=== PATIENT | female | born 1965 | race Caucasian/White ===

== ENCOUNTER 2016-09-17 13:21 | Outpatient (CLI) | payer MEDICAID | END 2016-09-17 13:22 | disposition home or self-care (01) | DX: F43.12 Post-traumatic stress disorder, chronic (principal); F33.1 Major depressive disorder, recurrent, moderate; G47.00 Insomnia, unspecified; F10.20 Alcohol dependence, uncomplicated ==

== ENCOUNTER 2016-09-18 12:40 | Outpatient (CLI) | payer MEDICAID | END 2016-09-18 12:41 | disposition home or self-care (01) | DX: M25.462 Effusion, left knee (principal); Z96.653 Presence of artificial knee joint, bilateral ==

== ENCOUNTER 2016-10-06 08:13 | Outpatient (CLI) | payer MEDICAID | END 2016-10-06 08:14 | disposition home or self-care (01) | DX: M25.462 Effusion, left knee (principal); M25.461 Effusion, right knee; Z96.653 Presence of artificial knee joint, bilateral ==

== ENCOUNTER 2016-10-07 09:00 | Outpatient (CLI) | payer MEDICAID | END 2016-10-07 09:01 | DX: Z01.818 Encounter for other preprocedural examination (principal) ==

== ENCOUNTER 2016-10-07 09:14 | Outpatient (CLI) | payer MEDICAID | END 2016-10-07 09:15 | disposition home or self-care (01) | DX: Z01.818 Encounter for other preprocedural examination (principal) ==

== ENCOUNTER 2016-10-07 11:49 | Outpatient (CLI) | payer MEDICAID | END 2016-10-07 11:50 | disposition home or self-care (01) | DX: Z01.818 Encounter for other preprocedural examination (principal) ==

== ENCOUNTER 2017-01-01 10:01 | Outpatient (CLI) | payer MEDICAID ==
[2017-01-01 10:51] LABS: BASOPHILS # (AUTO) 0.1 10^3/uL (0.0-0.1); BASOPHILS % (AUTO) 0.8 %; EOSINOPHILS # (AUTO) 0.2 10^3/uL (0.0-0.7); EOSINOPHILS % (AUTO) 2.2 %; HCT - HEMATOCRIT 40.5 % (37.0-47.0); HGB - HEMOGLOBIN 13.6 g/dL (12.0-16.0); LYMPHOCYTES # (AUTO) 2.8 10^3/uL (1.5-3.5); LYMPHOCYTES % (AUTO) 29.4 %; MEAN CORPUSCULAR HEMOGLOBIN 30.7 pg (27.0-31.0); MEAN CORPUSCULAR HGB CONC 33.6 g/dL (32.0-36.0); MEAN CORPUSCULAR VOLUME 91.6 fL (81.0-99.0); MEAN PLATELET VOLUME 6.7 fL (7.9-10.8); MONOCYTES # (AUTO) 0.5 10^3/uL (0.0-1.0); MONOCYTES % (AUTO) 5.1 %; NEUTROPHILS # (AUTO) 5.9 10^3/uL (1.5-6.6); NEUTROPHILS % (AUTO) 62.5 %; RED BLOOD COUNT 4.42 10^6/uL (4.20-5.40); RED CELL DISTRIBUTION WIDTH 13.9 % (12.0-15.0); UNCORRECTED WHITE BLOOD COUNT 9.5 x10^3/uL; WHITE BLOOD COUNT 9.5 x10^3/uL (4.8-10.8)
== END 2017-01-01 10:02 | disposition home or self-care (01) ==
LOC: LAB 10:01
PROVIDERS: ATTEND Orthopaedic Surgery
DX: M25.562 Pain in left knee (principal); Z96.652 Presence of left artificial knee joint
CPT/HCPCS: 36415; 85025; 85651; 86140

== ENCOUNTER 2017-03-25 18:33 | Emergency (ER) | payer MEDICAID ==
[2017-03-25] MEDS ORDERED: LIDOCAINE PATCH 5% TOP STA (20:20)
[2017-03-25] MEDS ORDERED: DEXAMETHASONE 10 MG/ML VIAL PO STA (20:20)
[2017-03-25] MEDS ORDERED: CYCLOBENZAPRINE 10 MG TABLET PO STA (20:20)
[2017-03-25] MEDS ORDERED: CYCLOBENZAPRINE 10 MG TABLET PO ONE (20:38)
[2017-03-25] MEDS ORDERED: CHERRY SYRUP 10 ML UDC PO ONE (20:39)
[2017-03-25] MEDS ORDERED: LIDOCAINE PATCH 5% TOP ONE (20:39)
[2017-03-25] MEDS ORDERED: DEXAMETHASONE 10 MG/ML VIAL ONE (20:39)
--- NOTE | 2017-03-25 20:42 | ED Physician Documentation ---
History of Present Illness - Stated complaint Stated Complaint: SHOULDER PX - Chief complaint Chief Complaint: Ext Problem - Additonal information Additional information: hx from pt 51 female prior surgery both shoulders with complications and resultant limited ROM about a week ago she was reaching and heard / felt a crack in her shoulder and has had severe pain to top/ant shoulder since radiating to the side of her neck and occ shooting down her arm to the 3rd and 4th fingers was a ortho office yesterday but for her knee and did not have the shoulder addressed Review of Systems Musculoskeletal: reports: Joint pain PD PAST MEDICAL HISTORY - Past Medical History Cardiovascular: None Respiratory: None Neuro: None Endocrine/Autoimmune: None GI: None 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 HEENT: Other Psych: Depression, Anxiety, Bipolar disorder Musculoskeletal: Osteoarthritis, Other Derm: None - Past Surgical History Past Surgical History: Yes General: Cholecystectomy Ortho: Knee replacement, Rotator cuff repair HEENT: Tonsil/Adenoidectomy, Other - Present Medications Home Medications: Ambulatory Orders Medication Instructions Recorded Confirmed [place] Carbonate 900 mg PO DAILY 08/30/13 03/25/17 Cyclobenzaprine [Flexeril] 10 mg PO TID PRN #20 tablet 03/25/17 Lidocaine Patch 5% [Lidoderm Patch] 1 each TOP DAILY PRN #10 patch 03/25/17 predniSONE [Deltasone] 20 mg PO DAILY 5 Days 03/25/17 - Allergies Allergies/Adverse Reactions: Allergies Allergy/AdvReac Type Severity Reaction Status Date / Time codeine Allergy Mild Hives Verified 03/25/17 19:37 - Social History Does the pt smoke?: Yes Smoking Status: Current every day smoker Does the pt drink ETOH?: No Does the pt have substance abuse?: No - Immunizations Immunizations are current?: Yes - POLST Patient has POLST: No PD ED PE NORMAL - Vitals Vital signs reviewed: Yes - Cardiac Cardiac: RRR - Respiratory Respiratory: No respiratory distress, Clear bilaterally - Extremities Extremities: Other (L shoulder no sig deformity, surgical scar, limited ROM niru ext and ABD 2/2, no eruythema or warmth, + radial ulnar pulses, sensation intact , bicep tricep OK dog and cat food cook finger ABD wrist ext OK and thumbs up all intact) - Neuro Neuro: No motor deficit, No sensory deficit Results - Vitals Vitals: Vital Signs - 24 hr 03/25/17 03/25/17 18:41 21:30 Temperature 36.7 C 36.5 C Heart Rate 63 64 Respiratory 22 18 Rate Blood Pressure 113/73 119/87 H O2 Saturation 100 100 Oxygen O2 Source [With Activity] Room air O2 Source Room air - Rads (name of study) shoulder Radiology: See rad report (degen changes but no acute) Departure - Departure Disposition: 01 Home, Self Care Clinical Impression: Radiculopathy of arm Shoulder pain, left Qualifiers: Chronicity: unspecified Qualified Code(s): M25.512 - Pain in left shoulder Condition: Good Follow-Up: Kalyn Talbert ARNP [Primary Care Provider] - Ruben Orona DO [Physician No Access] - Prescriptions: predniSONE [Deltasone] 20 mg PO DAILY 5 Days Cyclobenzaprine [Flexeril] 10 mg PO TID PRN #20 tablet PRN Reason: Spasms Lidocaine Patch 5% [Lidoderm Patch] 1 each TOP DAILY PRN #10 patch PRN Reason: Pain Comments: The xray shows degenerative changes but no acute fracture or dislocation. I recommend wearing the sling as needed for comfort and support - but it is important for you to do some range of motion with shoulder several times a day to prevent a "frozen shoulder" Recommend lidocaine patch (up to 12 hr a day) and flexeril (muscle relaxant) for the pain and the steroids to decrease the nerve pain going down your arm. Do not take aleve or ibuprofen while taking the steroid Follow up with your home health billing specialist if not better And please follow up with your PMD to get your blood pressure rechecked - it was high today
--- NOTE | 2017-03-25 21:25 | XRAY Preliminary Report ---
Exam: XR Shoulder 3 View LT IMPRESSION: 1. No acute osseous abnormalities. Normal alignment. 2. Degenerative changes of the left shoulder. [facility] SITE ID: [id number]
--- NOTE | 2017-03-25 21:27 | XRAY Report ---
EXAM: LEFT SHOULDER RADIOGRAPHY EXAM DATE: 03/25/2017 08:43 PM. CLINICAL HISTORY: Pain and cracking sensation, prior surgery. COMPARISON: 06/25/2015. 10/17/2014. TECHNIQUE: 3 views. FINDINGS: Bones: No acute fracture or bony lesion. Degenerative osteophyte formation. Type I acromion. Subchond ral cystic change involving the left humeral head. Joints: Narrowing of the left acromioclavicular an left glenohumeral joints. No dislocation. Soft tissues: The visualized hemithorax is unremarkable. No soft tissue swelling. IMPRESSION: 1. No acute osseous abnormalities. Normal alignment. 2. Degenerative changes of the left shoulder. [facility] Referring Provider Line: [phone] SITE ID: [id number]
[2017-03-25 21:31] VITALS: BP 119/87
== END 2017-03-25 22:01 | disposition home or self-care (01) ==
LOC: ED 18:33
DX: M54.10 Radiculopathy, site unspecified (principal); M25.512 Pain in left shoulder; F17.200 Nicotine dependence, unspecified, uncomplicated; Z96.659 Presence of unspecified artificial knee joint
CPT/HCPCS: 73030; 99283; A9270

== ENCOUNTER 2017-05-12 10:21 | Emergency (ER) | payer MEDICAID ==
--- NOTE | 2017-05-12 11:47 | ED Physician Documentation ---
PD HPI UPPER EXT INJURY - Stated complaint Stated Complaint: SHLDR PAIN - Chief complaint Chief Complaint: Ext Problem - History obtained from History obtained from: Patient - History of Present Illness Location: Left, Shoulder Type of injury: No: Fall, Twist, Blunt / blow Timing - details: Abrupt onset, Still present Worsened by: Moving Associated symptoms: No: Weakness, Numbness, Swelling Similar symptoms before: Diagnosis Recently seen: Not recently seen Review of Systems Skin: denies: Rash Neurologic: denies: Focal weakness, Numbness, Near syncope Endocrine: denies: Weight loss PD PAST MEDICAL HISTORY - Past Medical History Past Medical History: Yes Cardiovascular: None Respiratory: None Neuro: None Endocrine/Autoimmune: None GI: None 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 HEENT: Other Psych: Depression, Anxiety, Bipolar disorder Musculoskeletal: Osteoarthritis, Other Derm: None - Past Surgical History Past Surgical History: Yes General: Cholecystectomy Ortho: Knee replacement, Rotator cuff repair HEENT: Tonsil/Adenoidectomy, Other - Present Medications Home Medications: Ambulatory Orders Medication Instructions Recorded Confirmed [place] Carbonate 900 mg PO DAILY 08/30/13 05/12/17 Cyclobenzaprine [Flexeril] 10 mg PO TID PRN #20 tablet 03/25/17 05/12/17 Dexamethasone [Decadron] 4 mg PO DAILY #5 tablet 05/12/17 Gabapentin 400 mg PO DAILY 05/12/17 05/12/17 Lidocaine Patch 5% [Lidoderm Patch] 1 each TOP DAILY #10 patch 05/12/17 Methocarbamol [Robaxin] 500 mg PO Q6H PRN #25 tablet 05/12/17 Oxycodone HCl/Acetaminophen 1 each PO Q6H PRN #15 tablet 05/12/17 [Percocet 5-325 mg Tablet] - Allergies Allergies/Adverse Reactions: Allergies Allergy/AdvReac Type Severity Reaction Status Date / Time codeine Allergy Mild Hives Verified 05/12/17 10:26 - Social History Does the pt smoke?: Yes Smoking Status: Current every day smoker Does the pt drink ETOH?: No Does the pt have substance abuse?: No - Immunizations Immunizations are current?: Yes - POLST Patient has POLST: No PD ED PE NORMAL - Vitals Vital signs reviewed: Yes - General General: Alert and oriented X 3, Well developed/nourished - HEENT HEENT: Pharynx benign - Neck Neck: Supple, no meningeal sign, No adenopathy, Other (tender left suprascaular area and to the AC joint, without redness, sores, rash. Limited ROm uplifting arm, without pain. No noted clicking nor popping.) - Derm Derm: Normal color, Warm and dry, No rash Results - Vitals Vitals: Vital Signs - 24 hr 05/12/17 05/12/17 10:23 12:42 Temperature 35.9 C L 97.6 C H Heart Rate 73 56 L Respiratory 20 18 Rate Blood Pressure 121/81 H 123/78 O2 Saturation 100 97 Oxygen O2 Source [With Activity] Room air O2 Source Room air - Rads (name of study) left shoulder Radiology: Prelim report reviewed, EMP read contemporaneously (no fracture bnoted.) Departure - Departure Disposition: Home, Self Care Clinical Impression: Shoulder pain, left Qualifiers: Chronicity: chronic Qualified Code(s): M25.512 - Pain in left shoulder Condition: Stable Record reviewed to determine appropriate education?: Yes Follow-Up: Kalyn Talbert ARNP [Primary Care Provider] - Ruben Orona DO [Physician No Access] - Prescriptions: Dexamethasone [Decadron] 4 mg PO DAILY #5 tablet Lidocaine Patch 5% [Lidoderm Patch] 1 each TOP DAILY #10 patch Methocarbamol [Robaxin] 500 mg PO Q6H PRN #25 tablet PRN Reason: Spasms Oxycodone HCl/Acetaminophen [Percocet 5-325 mg Tablet] 1 each PO Q6H PRN #15 tablet PRN Reason: Pain Comments: Light use of left shoulder and try to have some gentle range of motion of it so does not get stiff. Decadron daily for 5 more days as an anti-inflammatory. Use Robaxin as needed for muscle stiffness. Lidocaine patches that you have used before topically to the area. Add Tylenol or Percocet if needed for pain. Follow-up with Dr. Orona. Discharge Date/Time: 05/12/17 12:42
[2017-05-12] MEDS ORDERED: DEXAMETHASONE 10 MG/ML VIAL PO STA (11:55)
[2017-05-12] MEDS ORDERED: diazePAM 5 MG TABLET PO STA (11:55)
[2017-05-12] MEDS ORDERED: oxyCOD/ACETAMIN 5 MG/325 MG TABLET PO STA (11:55)
[2017-05-12] MEDS ORDERED: oxyCOD/ACETAMIN 5 MG/325 MG TABLET PO ONE (12:06)
[2017-05-12] MEDS ORDERED: DEXAMETHASONE 10 MG/ML VIAL ONE (12:07)
[2017-05-12] MEDS ORDERED: diazePAM 5 MG TABLET PO ONE (12:07)
[2017-05-12 12:43] VITALS: BP 123/78
== END 2017-05-12 12:42 | disposition home or self-care (01) ==
LOC: ED 10:21
DX: M25.512 Pain in left shoulder (principal); F17.200 Nicotine dependence, unspecified, uncomplicated; Z96.659 Presence of unspecified artificial knee joint
CPT/HCPCS: 99283

== ENCOUNTER 2017-06-11 08:28 | Outpatient (CLI) | payer MEDICAID ==
--- NOTE | 2017-06-11 11:34 | MRI Report ---
EXAM: LEFT SHOULDER MRI WITHOUT CONTRAST EXAM DATE: 06/11/2017 09:30 AM. CLINICAL HISTORY: Left shoulder pain with reduced range of motion and inability to lift the left uppe r limb for 7 months. Prior rotator cuff surgery. COMPARISON: Prior MRI June 2015. TECHNIQUE: Multiplanar, multisequence T1-weighted and fluid-sensitive sequences of the shoulder witho ut contrast. Other: None. FINDINGS: Acromioclavicular Region: There is an acromioclavicular joint effusion. There is a type II acromion. Fluid fills the subacromial bursa. Glenohumeral Region: There is superior subluxation of the humeral head secondary to the chronic full- thickness rotator cuff tears. There is posterior subluxation of the humeral head as well. The posteri or inferior quadrant of the bony glenoid appears irregular, suggesting prior trauma. There is focal t hinning of the hyaline cartilage of the inferior half of the glenoid. There is a small joint effusion .. Bone Marrow: Suture anchors in the greater tuberosity. Labrum: There is fraying of the posterior inferior quadrant of the labrum, suggesting a tear. The sup erior labrum appears truncated and frayed. The remnants of the proximal long head of biceps tendon ar e medially subluxed. The findings are consistent with a SLAP tear. The remainder of the labrum appear s normal. Musculature/Rotator Cuff: Complete rupture and atrophy of supraspinatus. Near complete rupture of inf raspinatus also with atrophy. Tendinosis and partial-thickness tearing of the deep and superficial fi bers of subscapularis with mild atrophy. The tear involves almost the entire tendon thickness. There is artifact adjacent to the greater tuberosity consistent with prior surgery. Biceps Tendon: Chronic rupture or resection of the long biceps tendon. Other: The subcutaneous tissues are unremarkable. IMPRESSION: 1. Complete rupture of supraspinatus with atrophy. Near complete rupture of infraspinatus and subscap ularis also with partial atrophy. Rotator cuff tears have worsened since the prior study. 2. Superior and posterior subluxation of the humeral head. Worsened since the prior study. 3. Remodeling of the posteroinferior quadrant of the bony glenoid, and overlying labral tear and hyal ine cartilage thinning, suggestive of prior trauma. 4. Complete rupture or resection of the long head of biceps. The tendon was partially torn and medial ly subluxed on the prior study. 5. Probable superior labral tear as well, which may be secondary to the long biceps tendon tear/resec tion. 6. Acromioclavicular joint effusion which was present on the prior study. 7. Evidence of prior rotator cuff repair. [facility]CULOSKELET[facility] Referring Provider Line: [phone] SITE ID: [id number]
== END 2017-06-11 08:29 | disposition home or self-care (01) ==
LOC: DI 08:28
PROVIDERS: ATTEND Orthopaedic Surgery
DX: M75.102 Unspecified rotator cuff tear or rupture of left shoulder, not specified as traumatic (principal); S43.022A Posterior subluxation of left humerus, initial encounter; S46.112A Strain of muscle, fascia and tendon of long head of biceps, left arm, initial encounter; M25.412 Effusion, left shoulder

== ENCOUNTER 2017-07-29 12:52 | Outpatient (CLI) | payer MEDICAID ==
[2017-07-29 13:19] LABS: BASOPHILS # (AUTO) 0.1 10^3/uL (0.0-0.1); BASOPHILS % (AUTO) 0.9 %; EOSINOPHILS # (AUTO) 0.2 10^3/uL (0.0-0.7); EOSINOPHILS % (AUTO) 1.9 %; HGB - HEMOGLOBIN 13.5 g/dL (12.0-16.0); LYMPHOCYTES # (AUTO) 3.3 10^3/uL (1.5-3.5); LYMPHOCYTES % (AUTO) 33.3 %; MEAN CORPUSCULAR HEMOGLOBIN 31.5 pg (27.0-31.0); MEAN CORPUSCULAR HGB CONC 33.5 g/dL (32.0-36.0); MEAN PLATELET VOLUME 6.4 fL (7.9-10.8); MONOCYTES # (AUTO) 0.6 10^3/uL (0.0-1.0); MONOCYTES % (AUTO) 5.6 %; NEUTROPHILS # (AUTO) 5.8 10^3/uL (1.5-6.6); NEUTROPHILS % (AUTO) 58.3 %; PLT - PLATELET COUNT 430 10^3/uL (130-450); RED BLOOD COUNT 4.29 10^6/uL (4.20-5.40); RED CELL DISTRIBUTION WIDTH 13.4 % (12.0-15.0); WHITE BLOOD COUNT 9.9 x10^3/uL (4.8-10.8)
[2017-07-29 13:20] LABS: ALBUMIN 4.3 g/dL (3.2-5.5); ALBUMIN/GLOBULIN RATIO 1.6 (1.0-2.2); BILIRUBIN,TOTAL 0.3 mg/dL (0.2-1.0); CALCIUM 9.2 mg/dL (8.5-10.3); CREATININE 0.6 mg/dL (0.4-1.0)
[2017-07-29 14:19] LABS: LITHIUM 0.56 mmol/L
== END 2017-07-29 12:53 | disposition home or self-care (01) ==
LOC: LAB 12:52
PROVIDERS: ATTEND Psychiatry & Neurology Psychiatry
DX: F43.12 Post-traumatic stress disorder, chronic (principal); F33.1 Major depressive disorder, recurrent, moderate; G47.00 Insomnia, unspecified
CPT/HCPCS: 36415; 80053; 80178; 84443; 85025

== ENCOUNTER 2017-11-16 07:07 | Outpatient (CLI) | payer MEDICAID ==
[2017-11-16 07:23] LABS: BASOPHILS # (AUTO) 0.1 10^3/uL (0.0-0.1); BASOPHILS % (AUTO) 0.8 %; EOSINOPHILS # (AUTO) 0.3 10^3/uL (0.0-0.7); EOSINOPHILS % (AUTO) 3.2 %; HGB - HEMOGLOBIN 12.7 g/dL (12.0-16.0); LYMPHOCYTES # (AUTO) 2.7 10^3/uL (1.5-3.5); LYMPHOCYTES % (AUTO) 25.8 %; MEAN CORPUSCULAR HEMOGLOBIN 30.8 pg (27.0-31.0); MEAN CORPUSCULAR HGB CONC 33.5 g/dL (32.0-36.0); MEAN CORPUSCULAR VOLUME 91.9 fL (81.0-99.0); MEAN PLATELET VOLUME 6.3 fL (7.9-10.8); MONOCYTES # (AUTO) 0.5 10^3/uL (0.0-1.0); MONOCYTES % (AUTO) 4.9 %; NEUTROPHILS # (AUTO) 6.7 10^3/uL (1.5-6.6); NEUTROPHILS % (AUTO) 65.3 %; PLT - PLATELET COUNT 435 10^3/uL (130-450); RED BLOOD COUNT 4.12 10^6/uL (4.20-5.40); RED CELL DISTRIBUTION WIDTH 14.2 % (12.0-15.0); WHITE BLOOD COUNT 10.3 x10^3/uL (4.8-10.8)
[2017-11-16 07:38] LABS: ALBUMIN 4.2 g/dL (3.2-5.5); ALBUMIN/GLOBULIN RATIO 1.7 (1.0-2.2); ALKALINE PHOSPHATASE 76 IU/L (42-121); ALT ALANINE AMINOTRANSFERASE 18 IU/L (10-60); AST ASPARTATE AMINOTRANSFERASE 22 IU/L (10-42); BILIRUBIN,TOTAL 0.9 mg/dL (0.2-1.0); BUN - BLOOD UREA NITROGEN 10 mg/dL (6-20); CALCIUM 9.1 mg/dL (8.5-10.3); CARBON DIOXIDE - CO2 26 mmol/L (21-32); CHLORIDE 104 mmol/L (101-111); CHOL/HDL RATIO 4.3 (<4.4); CHOLESTEROL 185 mg/dL; CREATININE 0.7 mg/dL (0.4-1.0); GFR - MDRD 88 (>89); GLUCOSE 102 mg/dL (70-100); GLUCOSE,FASTING 102 mg/dL (70-100); HDL CHOLESTEROL 43 mg/dL; LDL CHOLESTEROL,CALCULATED 113 mg/dL; LDL/HDL RATIO 2.6 (<4.4); SODIUM 137 mmol/L (135-145); TOTAL PROTEIN 6.7 g/dL (6.7-8.2); VLDL CHOLESTEROL 29 mg/dL
[2017-11-16 08:28] LABS: LITHIUM 0.99 mmol/L
== END 2017-11-16 07:08 | disposition home or self-care (01) ==
LOC: LAB 07:07
PROVIDERS: ATTEND Nurse Practitioner Family
DX: F31.12 Bipolar disorder, current episode manic without psychotic features, moderate (principal)
CPT/HCPCS: 36415; 80053; 80061; 80178; 82306; 82947; 83721; 84443; 85025

== ENCOUNTER 2018-02-16 17:50 | Emergency (ER) | payer MEDICAID ==
[2018-02-16] MEDS ORDERED: oxyCODONE 5 MG TABLET PO STA ×2 (18:20→19:12)
--- NOTE | 2018-02-16 18:22 | ED Physician Documentation ---
History of Present Illness - Stated complaint Stated Complaint: GLF LT SIDE - Chief complaint Chief Complaint: Ext Problem - History obtained from History obtained from: Patient - History of Present Illness Timing: Yesterday (She tripped and fell yesterday inverting her right ankle and hitting the ground on the left side and complains of rib pain on the left and right ankle pain. She is able to walk and bear weight. 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 HEENT: Other Psych: Depression, Anxiety, Bipolar disorder Musculoskeletal: Osteoarthritis, Other Derm: None - Past Surgical History Past Surgical History: Yes General: Cholecystectomy Ortho: Knee replacement, Rotator cuff repair HEENT: Tonsil/Adenoidectomy, Other - Present Medications Home Medications: Ambulatory Orders Medication Instructions Recorded Confirmed [place] Carbonate 900 mg PO DAILY 08/30/13 05/12/17 Cyclobenzaprine [Flexeril] 10 mg PO TID PRN #20 tablet 03/25/17 05/12/17 Gabapentin 400 mg PO DAILY 05/12/17 05/12/17 Methocarbamol [Robaxin] 500 mg PO Q6H PRN #25 tablet 05/12/17 Ibuprofen [Motrin] 800 mg PO Q8H PRN #30 tablet 02/16/18 Oxycodone HCl/Acetaminophen 1 - 2 tab PO Q4H PRN #7 tablet 02/16/18 [Percocet 5-325 mg Tablet] Propranolol [Inderal] mg PO BID 02/16/18 - Allergies Allergies/Adverse Reactions: Allergies Allergy/AdvReac Type Severity Reaction Status Date / Time codeine Allergy Mild Hives Verified 02/16/18 18:00 - Social History Does the pt smoke?: Yes Smoking Status: Current every day smoker Does the pt drink ETOH?: No Does the pt have substance abuse?: No - Immunizations Immunizations are current?: Yes - POLST Patient has POLST: No PD ED PE NORMAL - Vitals Vital signs reviewed: Yes - General General: Alert and oriented X 3, No acute distress - Neck Neck: Supple, no meningeal sign, No bony TTP - Cardiac Cardiac: RRR, No murmur - Respiratory Respiratory: No respiratory distress, Clear bilaterally - Back Back: Other (Tender about rib 10 anterior axillary line on the left, no deformity.) - Extremities Extremities: Other (Soft tissue swelling over the lateral right ankle with some underlying tenderness over the lateral malleolus. No proximal fibular or foot TTP.) - Neuro Neuro: Alert and oriented X 3, Normal speech Results - Vitals Vitals: Vital Signs - 24 hr 02/16/18 17:57 Temperature 36.0 C L Heart Rate 78 Respiratory 16 Rate Blood Pressure 98/78 O2 Saturation 98 Oxygen O2 Source [With Activity] Room air O2 Source Room air - Rads (name of study) X-rays of the right ankle and left ribs with chest Radiology: EMP read contemporaneously (Normal without fractures) PD MEDICAL DECISION MAKING - Sepsis Event Vital Signs: Vital Signs - 24 hr 02/16/18 17:57 Temperature 36.0 C L Heart Rate 78 Respiratory 16 Rate Blood Pressure 98/78 O2 Saturation 98 Oxygen O2 Source [With Activity] Room air O2 Source Room air Departure - Departure Disposition: 01 Home, Self Care Clinical Impression: Contusion of left chest wall Qualifiers: Encounter type: initial encounter Qualified Code(s): S20.212A - Contusion of left front wall of thorax, initial encounter Right ankle sprain Qualifiers: Encounter type: initial encounter Involved ligament of ankle: deltoid ligament Qualified Code(s): S93.421A - Sprain of deltoid ligament of right ankle, initial encounter Condition: Good Record reviewed to determine appropriate education?: Yes Instructions: ED Sprain Ankle W X Ray, ED Contusion Chest Wall Prescriptions: Ibuprofen [Motrin] 800 mg PO Q8H PRN #30 tablet PRN Reason: PAIN &/OR FEVER Oxycodone HCl/Acetaminophen [Percocet 5-325 mg Tablet] 1 - 2 tab PO Q4H PRN #7 tablet PRN Reason: Pain Comments: Call your doctor to arrange a follow-up appointment, make the next available appointment. In the interim, return anytime if worse or if new symptoms develop. Do not drink or drive while taking narcotic pain medication. Note that many narcotic pain relievers also contain Tylenol/acetaminophen. Please ensure that your total dose of acetaminophen from all sources does not exceed 3 g (3000 mg) per day. You may get constipated while on this medication. Take a stool softener such as Colace twice a day while you are on it. Also add an [id number] laxative such as senna or MiraLAX on any day that you do not have a bowel movement. If you received a narcotic pain medication or sedative while in the emergency department, do not drive for the next 24 hours.
--- NOTE | 2018-02-16 19:01 | XRAY Report ---
Procedure Date: 02/16/2018 Accession Number: [id number] / [id number] Procedure: XR - Ribs w/PA Chest LT CPT Code: FULL RESULT: EXAM: LEFT RIB RADIOGRAPHY EXAM DATE: 02/16/2018 06:30 PM. CLINICAL HISTORY: Fall, rib and ankle inj. COMPARISON: XR CHEST PA AND LAT 10/06/2012. TECHNIQUE: 1 view of the chest and 2 views of the ribs. FINDINGS: Bones: Normal. No fracture or bone lesion. Lungs: No evidence of acute consolidation or effusion. Opacity within the left lateral lung base likely represents prominent epicardial fat. Mediastinum: Heart and mediastinal contours are unremarkable. Other: None. IMPRESSION: No evidence of displaced rib fracture. No focal infiltrate or pneumothorax. [facility]
--- NOTE | 2018-02-16 19:05 | XRAY Report ---
Procedure Date: 02/16/2018 Accession Number: [id number] / [id number] Procedure: XR - Ankle 3 View RT CPT Code: FULL RESULT: EXAM: RIGHT ANKLE RADIOGRAPHY EXAM DATE: 02/16/2018 06:31 PM. CLINICAL HISTORY: Fall, rib and ankle inj. COMPARISON: None. TECHNIQUE: 3 views. FINDINGS: Bones: No evidence of acute fracture. There is cortical irregularity of the distal fibula which may correspond to remote fracture. Joints: No evidence of dislocation. There is underlying degenerative disease. Soft Tissues: No unexpected soft tissue findings. IMPRESSION: No evidence of acute fracture or dislocation. [facility]
[2018-02-16 19:32] VITALS: BP 100/80
== END 2018-02-16 19:28 | disposition home or self-care (01) ==
LOC: ED 17:50
DX: S20.212A Contusion of left front wall of thorax, initial encounter (principal); S93.421A Sprain of deltoid ligament of right ankle, initial encounter; W01.0XXA Fall on same level from slipping, tripping and stumbling without subsequent striking against object, initial encounter
CPT/HCPCS: 71101; 73610; 99283; A9270

== ENCOUNTER 2018-07-12 12:15 | Outpatient (CLI) | payer MEDICAID ==
[2018-07-12 12:45] LABS: BASOPHILS # (AUTO) 0.1 10^3/uL (0.0-0.1); BASOPHILS % (AUTO) 0.8 %; EOSINOPHILS # (AUTO) 0.3 10^3/uL (0.0-0.7); EOSINOPHILS % (AUTO) 2.8 %; HGB - HEMOGLOBIN 13.4 g/dL (12.0-16.0); LYMPHOCYTES # (AUTO) 2.7 10^3/uL (1.5-3.5); LYMPHOCYTES % (AUTO) 29.2 %; MEAN CORPUSCULAR HEMOGLOBIN 31.1 pg (27.0-31.0); MEAN CORPUSCULAR HGB CONC 33.7 g/dL (32.0-36.0); MEAN CORPUSCULAR VOLUME 92.5 fL (81.0-99.0); MEAN PLATELET VOLUME 6.3 fL (7.9-10.8); MONOCYTES # (AUTO) 0.4 10^3/uL (0.0-1.0); MONOCYTES % (AUTO) 4.7 %; NEUTROPHILS # (AUTO) 5.7 10^3/uL (1.5-6.6); NEUTROPHILS % (AUTO) 62.5 %; PLT - PLATELET COUNT 403 10^3/uL (130-450); RED BLOOD COUNT 4.31 10^6/uL (4.20-5.40); RED CELL DISTRIBUTION WIDTH 14.4 % (12.0-15.0); WHITE BLOOD COUNT 9.1 x10^3/uL (4.8-10.8)
[2018-07-12 13:03] LABS: ALBUMIN 4.1 g/dL (3.2-5.5); ALBUMIN/GLOBULIN RATIO 1.6 (1.0-2.2); ALKALINE PHOSPHATASE 62 IU/L (42-121); ALT ALANINE AMINOTRANSFERASE 15 IU/L (10-60); AST ASPARTATE AMINOTRANSFERASE 18 IU/L (10-42); BILIRUBIN,TOTAL 0.4 mg/dL (0.2-1.0); BUN - BLOOD UREA NITROGEN 15 mg/dL (6-20); CALCIUM 9.3 mg/dL (8.5-10.3); CARBON DIOXIDE - CO2 26 mmol/L (21-32); CHLORIDE 106 mmol/L (101-111); CHOL/HDL RATIO 4.3 (<4.4); CHOLESTEROL 199 mg/dL; CREATININE 0.8 mg/dL (0.4-1.0); GFR - MDRD 75 (>89); GLUCOSE 97 mg/dL (70-100); HDL CHOLESTEROL 46 mg/dL; LDL CHOLESTEROL,CALCULATED 127 mg/dL; LDL/HDL RATIO 2.8 (<4.4); SODIUM 138 mmol/L (135-145); TOTAL PROTEIN 6.7 g/dL (6.7-8.2); VLDL CHOLESTEROL 26 mg/dL
[2018-07-12 13:48] LABS: LITHIUM 1.02 mmol/L
[2018-07-12 14:04] LABS: THYROID STIMULATING HORMONE 1.9 uIU/mL (0.34-5.60)
[2018-07-12 14:11] LABS: PROLACTIN 8.49 ng/mL
[2018-07-12 14:15] LABS: FOLATE 6.62 ng/mL (5.90 - >24.8)
== END 2018-07-12 12:16 | disposition home or self-care (01) ==
LOC: LAB 12:15
PROVIDERS: ATTEND Nurse Practitioner Family
DX: F31.32 Bipolar disorder, current episode depressed, moderate (principal)
CPT/HCPCS: 36415; 80053; 80061; 80178; 82306; 82607; 82746; 83721; 84146; 84443; 85025

== ENCOUNTER 2018-09-29 10:23 | Emergency (ER) | payer MEDICAID ==
[2018-09-29 10:38] VITALS: BP 103/61
--- NOTE | 2018-09-29 11:13 | ED Physician Documentation ---
History of Present Illness - Stated complaint Stated Complaint: MED REFILL - Chief complaint Chief Complaint: General - History obtained from History obtained from: Patient - History of Present Illness Timing: How many weeks ago (2) - Additonal information Additional information: 53-year-old female with history of bipolar disorder is on methylphenidate and clonazepam and the clinic [facility] has closed permanently in [place] and the patient has been out of her medication for 2 weeks. She is beginning to feel the effects of this and is requesting a refill. Review of Systems Constitutional: denies: Fever Respiratory: denies: Cough GI: denies: Vomiting Skin: denies: Rash Neurologic: denies: Generalized weakness, Focal weakness, Numbness Psychiatric: reports: Anxiety. 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 HEENT: Other Psych: Depression, Anxiety, Bipolar disorder Musculoskeletal: Osteoarthritis, Other Derm: None - Past Surgical History Past Surgical History: Yes General: Cholecystectomy Ortho: Knee replacement, Rotator cuff repair HEENT: Tonsil/Adenoidectomy, Other - Present Medications Home Medications: Ambulatory Orders Medication Instructions Recorded Confirmed [place] Carbonate 900 mg PO DAILY 08/30/13 05/12/17 Gabapentin 400 mg PO DAILY 05/12/17 05/12/17 Propranolol [Inderal] mg PO BID 02/16/18 Methylphenidate HCl [Con[place]] 36 mg DAILY 09/29/18 09/29/18 Methylphenidate HCl 36 mg PO DAILY PM #30 tab.[email or web address] 09/29/18 [Methylphenidate ER] clonazePAM [Clonazepam] 0.5 mg 09/29/18 clonazePAM [Clonazepam] 0.5 mg PO BID #60 tablet 09/29/18 - Allergies Allergies/Adverse Reactions: Allergies Allergy/AdvReac Type Severity Reaction Status Date / Time codeine Allergy Mild Hives Verified 09/29/18 10:38 - Social History Does the pt smoke?: Yes Smoking Status: Current every day smoker Does the pt drink ETOH?: No Does the pt have substance abuse?: No - Immunizations Immunizations are current?: Yes - POLST Patient has POLST: No PD ED PE NORMAL - Vitals Vital signs reviewed: Yes (normal ) - General General: Alert and oriented X 3, No acute distress, Well developed/nourished - HEENT HEENT: Atraumatic, PERRL, EOMI - Respiratory Respiratory: No respiratory distress - Derm Derm: Normal color, Warm and dry, No rash - Extremities Extremities: No deformity, No edema - Neuro Neuro: Alert and oriented X 3, curer acid drum 2-12 intact, No motor deficit, No sensory deficit, Normal speech Eye Opening: Spontaneous Motor: Obeys Commands Verbal: Oriented GCS Score: 15 - Psych Psych: Normal mood, Normal affect Results - Vitals Vitals: Vital Signs - 24 hr 09/29/18 10:28 Temperature 36.3 C L Heart Rate 68 Respiratory 16 Rate Blood Pressure 103/61 O2 Saturation 96 Oxygen O2 Source [With Activity] Room air O2 Source Room air PD MEDICAL DECISION MAKING - ED course Complexity details: considered differential, d/w patient ED course: 53-year-old female with bipolar disorder out of her medications both clonazepam and methylphenidate we will refill both of these for 1 month. Departure - Departure Disposition: 01 Home, Self Care Clinical Impression: Bipolar disorder Qualifiers: Active/Remission status: in partial remission Most recent bipolar episode type: most recent episode unspecified type Qualified Code(s): F31.70 - Bipolar disorder, currently in remission, most recent episode unspecified Condition: Stable Instructions: ED Manic Depression Follow-Up: Kalyn Talbert ARNP [Primary Care Provider] - Prescriptions: clonazePAM [Clonazepam] 0.5 mg PO BID #60 tablet Methylphenidate HCl [Methylphenidate ER] 36 mg PO DAILY PM #30 tab.[id number] Comments: Today we are able to fill your medications but in the future for these medications, we will not be able to refill these. You will need to follow-up with your primary care doctor.
[2018-09-29] MEDS ORDERED: ALBUTEROL NEB 2.5 MG/3 ML INH STA (11:32)
== END 2018-09-29 11:31 | disposition home or self-care (01) ==
LOC: ED 10:23
DX: F31.70 Bipolar disorder, currently in remission, most recent episode unspecified (principal); F41.9 Anxiety disorder, unspecified; F17.200 Nicotine dependence, unspecified, uncomplicated; Z96.659 Presence of unspecified artificial knee joint
CPT/HCPCS: 99283

== ENCOUNTER 2019-10-29 15:33 | Emergency (ER) | payer MEDICAID, MEDICARE ==
[2019-10-29 15:42] VITALS: BP 121/77
--- NOTE | 2019-10-29 15:59 | ED Physician Documentation ---
PD HPI HEENT - Stated complaint Stated Complaint: L JAW/EAR PX - Chief complaint Chief Complaint: Heent - History obtained from History obtained from: Patient (Last week she has had severe pain in the left jaw and it hurts to chew or talk. Pain radiates into the left ear. No hearing deficit. No URI symptoms. 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 HEENT: Other Psych: Depression, Anxiety, Bipolar disorder Musculoskeletal: Osteoarthritis, Other Derm: None - Past Surgical History Past Surgical History: Yes General: Cholecystectomy Ortho: Knee replacement, Rotator cuff repair HEENT: Tonsil/Adenoidectomy, Other - Present Medications Home Medications: Ambulatory Orders Medication Instructions Recorded Confirmed Haugen Carbonate 900 mg PO DAILY 08/30/13 05/12/17 Gabapentin 400 mg PO DAILY 05/12/17 05/12/17 Propranolol [Inderal] mg PO BID 02/16/18 Methylphenidate HCl [Concerta] 36 mg DAILY 09/29/18 09/29/18 Methylphenidate HCl 36 mg PO DAILY PM #30 tab.er.24 09/29/18 [Methylphenidate ER] clonazePAM [Clonazepam] 0.5 mg 09/29/18 clonazePAM [Clonazepam] 0.5 mg PO BID #60 tablet 09/29/18 Hydrocodone/Acetaminophen 1 - 2 each PO Q6H PRN #14 tablet 10/29/19 [Hydrocodon-Acetaminophen 5-325] - Allergies Allergies/Adverse Reactions: Allergies Allergy/AdvReac Type Severity Reaction Status Date / Time codeine Allergy Mild Hives Verified 09/29/18 10:38 - Social History Does the pt smoke?: Yes Smoking Status: Current every day smoker Does the pt drink ETOH?: No Does the pt have substance abuse?: No - Immunizations Immunizations are current?: Yes - POLST Patient has POLST: No PD ED PE NORMAL - Vitals Vital signs reviewed: Yes - General General: Alert and oriented X 3, No acute distress - HEENT HEENT: Other (She is quite tender over the left TMJ and has popping with opening and closing of the mandible. There is no deformity or warmth or redness. The TM on that side is normal.) - Neck Neck: Supple, no meningeal sign, No bony TTP - Neuro Neuro: Alert and oriented X 3, Normal speech Results - Vitals Vitals: Vital Signs - 24 hr 10/29/19 15:39 Temperature 36.5 C Heart Rate 80 Respiratory 18 Rate Blood Pressure 121/77 O2 Saturation 97 Oxygen O2 Source [With Activity] Room air O2 Source Room air Departure - Departure Disposition: 01 Home, Self Care Clinical Impression: Temporomandibular joint syndrome Condition: Good Record reviewed to determine appropriate education?: Yes Instructions: ED TMJ Syndrome Follow-Up: Lino Nava DDS [Provider Admit Priv/Credential] - Within 1 week Prescriptions: Hydrocodone/Acetaminophen [Hydrocodon-Acetaminophen 5-325] 1 - 2 each PO Q6H PRN #14 tablet PRN Reason: pain
[2019-10-29] MEDS: HYDROcod/ACETAM 5/325 MG TABLET PO STA (16:05)
== END 2019-10-29 16:28 | disposition home or self-care (01) ==
LOC: ED 15:33
DX: M26.602 Left temporomandibular joint disorder, unspecified (principal); F17.200 Nicotine dependence, unspecified, uncomplicated; F31.9 Bipolar disorder, unspecified
CPT/HCPCS: 99282; 99283; A9270

== ENCOUNTER 2020-11-17 11:49 | Emergency (ER) | payer MEDICARE ==
[2020-11-17] MEDS ORDERED: KETOROLAC 30 MG/ML VIAL IM STA (12:47)
[2020-11-17] MEDS ORDERED: oxyCODONE 5 MG TABLET PO STA (12:48)
--- NOTE | 2020-11-17 12:53 | ED Physician Documentation ---
History of Present Illness - Stated complaint Stated Complaint: RT KNEE PX - Chief complaint Chief Complaint: Ext Problem - History obtained from History obtained from: Patient - Additonal information Additional information: 55-year-old woman with history of chronic knee pain, past surgical history of bilateral knee replacements presents with right knee pain to the medial knee, nonradiating, severe and gradually worsening over the past 4 days, worse with weightbearing and pressing on the medial knee. Patient denies fevers, warmth, redness focal numbness or weakness. 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 : Frequency HEENT: Other Psych: Depression, Anxiety, Bipolar disorder Musculoskeletal: Osteoarthritis, Other Derm: None - Past Surgical History Past Surgical History: Yes General: Cholecystectomy Ortho: Knee replacement, Rotator cuff repair HEENT: Tonsil/Adenoidectomy, Other - Present Medications Home Medications: Ambulatory Orders Medication Instructions Recorded Confirmed Alpha Carbonate 900 mg PO DAILY 08/30/13 05/12/17 Gabapentin 400 mg PO DAILY 05/12/17 05/12/17 Propranolol [Inderal] mg PO BID 02/16/18 Methylphenidate HCl [Concerta] 36 mg DAILY 09/29/18 09/29/18 Methylphenidate HCl 36 mg PO DAILY PM #30 tab.er.24 09/29/18 [Methylphenidate ER] clonazePAM [Clonazepam] 0.5 mg 09/29/18 clonazePAM [Clonazepam] 0.5 mg PO BID #60 tablet 09/29/18 Hydrocodone/Acetaminophen 1 - 2 each PO Q6H PRN #14 tablet 10/29/19 [Hydrocodon-Acetaminophen 5-325] Ketorolac [Toradol] 10 mg PO Q6H PRN #30 tablet 11/17/20 - Allergies Allergies/Adverse Reactions: Allergies Allergy/AdvReac Type Severity Reaction Status Date / Time codeine Allergy Mild Hives Verified 11/17/20 12:02 - Social History Does the pt smoke?: Yes Smoking Status: Current every day smoker Does the pt drink ETOH?: No Does the pt have substance abuse?: No - Immunizations Immunizations are current?: Yes - POLST Patient has POLST: No PD ED PE NORMAL - Vitals Vital signs reviewed: Yes - General General: Alert and oriented X 3, No acute distress, Well developed/nourished - HEENT HEENT: Atraumatic, PERRL, EOMI - Extremities Extremities: No deformity, Other (Discomfort with bending of the knee more than 45 degrees. Negative Rolando and anterior drawer sign. Discomfort with valgus and varus maneuvers. Medial knee tender to palpation. No palpable swelling. 2+ bilateral DP and PT pulses. Normal sensation and strength distally.) - Neuro Neuro: Alert and oriented X 3, No motor deficit, No sensory deficit Results - Vitals Vitals: Vital Signs - 24 hr 11/17/20 11:59 Temperature 36.0 C L Heart Rate 82 Respiratory 16 Rate Blood Pressure 140/114 H O2 Saturation 96 Oxygen O2 Source [With Activity] Room air O2 Source Room air PD MEDICAL DECISION MAKING - ED course ED course: 55-year-old woman presents with chronic knee pain, worsening gradually over the past 4 days. She states that she ran out of Percocet 2 days ago and requested pain medication. I discussed with her that I can give her medicine the emergency department cannot provide a prescription for chronic pain management. She will need to follow-up with her primary doctor for referral to pain management as well as with our ortho clinic. Strict return precautions given. Departure - Departure Disposition: 01 Home, Self Care Clinical Impression: Chronic knee pain Condition: Good Instructions: ED RICE Follow-Up: Chava Hernandez MD [Provider Admit Priv/Credential] - Prescriptions: Ketorolac [Toradol] 10 mg PO Q6H PRN #30 tablet PRN Reason: Pain Comments: You are seen in the emergency department for chronic knee pain that has worsened over the past 4 days. Your x-rays did not show any acute findings. You should follow-up with orthopedics this week. Also follow-up with your primary doctor for referral to pain management and physical therapy. Return the emergency dep artment if you experience any new or worsening symptoms or other other concerns.
--- NOTE | 2020-11-17 12:58 | XRAY Report ---
PROCEDURE: Knee 2 View RT INDICATIONS: R knee pain TECHNIQUE: 2 views of the right knee(s) were acquired. COMPARISON: 09/28/2016, 06/17/2016 FINDINGS: Bones: No fractures or dislocations. No suspicious bony lesions. Right knee arthroplasty hardware is seen. No findings of hardware failure or hardware loosening can b e seen. Soft tissues: No joint effusion. No suspicious soft tissue calcifications. IMPRESSION: Unremarkable plain films, with intact appearing right knee arthroplasty hardware. No joint effusion. Reviewed by: Ru Dorado MD on 11/17/2020 11:56 AM [facility] Approved by: Ru Dorado MD on 11/17/2020 11:56 AM CHERRY Station ID: [id number]
[2020-11-17 13:38] VITALS: BP 138/90
== END 2020-11-17 13:37 | disposition home or self-care (01) ==
LOC: ED 11:49
DX: M25.561 Pain in right knee (principal); G89.29 Other chronic pain; F17.200 Nicotine dependence, unspecified, uncomplicated
CPT/HCPCS: 73560; 96372; 99283; A9270

== ENCOUNTER 2020-12-21 12:51 | Emergency (ER) | payer MEDICARE ==
--- OUTSIDE RECORDS SUMMARY | 2020-12-21 12:55 | EXTERNAL MEDICAL SUMMARY RPT | Continuity of Care Document ---
:1965 Demographics Phone Unavailable Preferred Language Unknown Marital Status Unknown Jainism Affiliation Unknown Race Unknown Ethnic Group Unknown Author Organization [facility] Address [address] [phone] Phone Allergies Encounters Medications Problems Results
--- OUTSIDE RECORDS SUMMARY | 2020-12-21 13:21 | EXTERNAL MEDICAL SUMMARY RPT | Continuity of Care Document ---
:1965 Demographics Phone Unavailable Preferred Language Unknown Marital Status Unknown Church Affiliation Unknown Race Unknown Ethnic Group Unknown Author Organization [facility] Address [address] [place] [address] Phone Allergies Encounters Medications Problems Results
[2020-12-21] MEDS ORDERED: KETOROLAC 30 MG/ML VIAL IVP STA (14:11)
[2020-12-21] MEDS ORDERED: DEXAMETHASONE 10 MG/ML VIAL IVP STA (14:11)
[2020-12-21] MEDS ORDERED: SODIUM CHLORIDE 0.9% 1,000 ML IV STA (14:11)
[2020-12-21] MEDS ORDERED: diphenhydrAMINE INJ 50 MG/ML VIAL IVP STA (14:11)
[2020-12-21] MEDS ORDERED: PROCHLORPERAZINE 10 MG/2 ML VIAL IVP STA (14:11)
--- NOTE | 2020-12-21 14:14 | ED Physician Documentation ---
PD HPI HEADACHE - Stated complaint Stated Complaint: DIZZY - Chief complaint Chief Complaint: Neuro - History obtained from History obtained from: Patient - History of Present Illness Timing - onset: How many days ago (5) Timing - onset during: Rest Timing - duration: Days (5) Timing - details: Gradual onset, Still present Location: Front Quality: Throbbing Associated symptoms: Nausea, Vomiting. No: Fever, Stiff neck, Weakness, Numbness, Syncope, Seizure, Eye pain, Vision changes Improved by: Rest, Dark room, Quiet Worsened by: Light, Noise, Moving Contributing factors: No: Anticoagulated Similar symptoms before: Diagnosis (migraine) Recently seen: Not recently seen - Additional information Additional information: 55-year-old female with a history of benign positional vertigo is developed an episode of vertigo about 5 days ago she did not get her usual relief with physical therapy and she has subsequently developed a headache that is throbbing in nature she has had some vomiting as well. She did take some Imitrex today which did not affect her headache. She has developed some photosensitivity. Review of Systems Constitutional: denies: Fever, Chills Eyes: reports: Photophobia Ears: denies: Ear pain Nose: denies: Congestion Throat: denies: Sore throat Respiratory: denies: Cough GI: reports: Nausea, Vomiting Skin: denies: Rash Musculoskeletal: denies: Neck pain, Back pain, Extremity pain Neurologic: reports: Headache. 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 : Frequency HEENT: Other Psych: Depression, Anxiety, Bipolar disorder Musculoskeletal: Osteoarthritis, Other Derm: None - Past Surgical History Past Surgical History: Yes General: Cholecystectomy Ortho: Knee replacement, Rotator cuff repair HEENT: Tonsil/Adenoidectomy, Other - Present Medications Home Medications: Ambulatory Orders Medication Instructions Recorded Confirmed Propranolol [Inderal] 20 mg PO BID PRN 02/16/18 12/21/20 Dextroamphetamine/Amphetamine 40 mg PO DAILY PM 12/21/20 12/21/20 [Adderall 20 mg Tablet] Meclizine HCl [Motion Sickness] 25 mg PO QID 12/21/20 12/21/20 lamoTRIgine [Lamictal] 150 mg PO DAILY 12/21/20 12/21/20 - Allergies Allergies/Adverse Reactions: Allergies Allergy/AdvReac Type Severity Reaction Status Date / Time codeine Allergy Mild Hives Verified 11/17/20 12:02 - Social History Does the pt smoke?: Yes Smoking Status: Current every day smoker Does the pt drink ETOH?: No Does the pt have substance abuse?: No - Immunizations Immunizations are current?: Yes - POLST Patient has POLST: No PD ED PE NORMAL - Vitals Vital signs reviewed: Yes (Hypertensive mild) - General General: Alert and oriented X 3, No acute distress, Well developed/nourished - HEENT HEENT: Atraumatic, PERRL, EOMI, Other (2 beats of nystagmus bilaterally) - Neck Neck: Supple, no meningeal sign, No bony TTP - Cardiac Cardiac: RRR, No murmur - Respiratory Respiratory: No respiratory distress, Clear bilaterally - Abdomen Abdomen: Soft, Non tender - Back Back: No CVA TTP, No spinal TTP - Derm Derm: Normal color, Warm and dry, No rash - Extremities Extremities: No deformity, No edema - Neuro Neuro: Alert and oriented X 3, upper tier 2-12 intact, No motor deficit, No sensory deficit, Normal speech Eye Opening: Spontaneous Motor: Obeys Commands Verbal: Oriented GCS Score: 15 - Psych Psych: Normal mood, Normal affect Results - Vitals Vitals: Vital Signs - 24 hr 12/21/20 12/21/20 13:10 15:37 Temperature 36.6 C 36.4 C L Heart Rate 84 68 Respiratory 16 16 Rate Blood Pressure 136/78 H 124/73 O2 Saturation 99 98 Oxygen O2 Source [With Activity] Room air O2 Source Room air PD MEDICAL DECISION MAKING - ED course Complexity details: reviewed old records, considered differential, d/w patient ED course: 55-year-old female with ADHD has developed a headache and dizziness with vomiting photophobia and she has not had relief of this with the use of Imitrex 3 days into her headache. Here in the emergency department an IV is begun she is given saline Compazine Benadryl Toradol and dexamethasone. The patient has resolution of her headache she continues to have some dizziness. She is instructed to continue to work on realigning her canaliculi. Departure - Departure Disposition: , Self Care Clinical Impression: Migraine Qualifiers: Migraine type: with aura Status migrainosus presence: without status migrainosus Intractability: not intractable Qualified Code(s): G43.109 - Migraine with aura, not intractable, without status migrainosus Condition: Stable Instructions: ED Headache Migraine Follow-Up: Marisa Zhu MD [Primary Care Provider] - Discharge Date/Time: 12/21/20 15:44
[2020-12-21 15:39] VITALS: BP 124/73
== END 2020-12-21 15:44 | disposition home or self-care (01) ==
LOC: ED 12:51
DX: G43.109 Migraine with aura, not intractable, without status migrainosus (principal); F17.200 Nicotine dependence, unspecified, uncomplicated
CPT/HCPCS: 96374; 96375; 99284; 99285; J1200

== ENCOUNTER 2021-02-02 00:02 | Outpatient (CLI) | payer MEDICARE | END 2021-02-02 00:03 | disposition critical access hospital (66) | LOC: EMS 00:02 | DX: S01.01XA Laceration without foreign body of scalp, initial encounter (principal); W19.XXXA Unspecified fall, initial encounter; Y92.009 Unspecified place in unspecified non-institutional (private) residence as the place of occurrence of the external cause | CPT/HCPCS: A0425; A0429 ==

== ENCOUNTER 2021-02-02 00:08 | Emergency (ER) | payer MEDICARE ==
--- NOTE | 2021-02-02 00:17 | ED Physician Documentation ---
History of Present Illness - Stated complaint Stated Complaint: FELL, HIT HEAD, HBD - History obtained from History obtained from: Patient, EMS - Additonal information Additional information: 55-year-old woman, not on blood thinners or anticoagulation, presents with laceration to left forehead after a fall from standing late this evening. Patient had 3 rum and Cokes and states that she slipped and fell, hitting the bracket that holds the fire extinguisher at their mobile but did not lose consciousness. unsure what she cut herself on. AO x4. fingerstick in the field was normal. denies pain anywhere except at site of laceration. last tetanus 8 years ago Review of Systems Ten Systems: 10 systems reviewed and negative Ears: denies: Ear pain, Tinnitus/ringing Throat: denies: Dental pain / toothache Cardiac: denies: Chest pain / pressure Respiratory: denies: Dyspnea GI: denies: Nausea Skin: reports: Laceration (s) Musculoskeletal: denies: Neck pain, Back pain, Extremity pain Neurologic: reports: Head injury. 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 : Frequency HEENT: Other Psych: Depression, Anxiety, Bipolar disorder Musculoskeletal: Osteoarthritis, Other Derm: None - Past Surgical History Past Surgical History: Yes General: Cholecystectomy Ortho: Knee replacement, Rotator cuff repair HEENT: Tonsil/Adenoidectomy, Other - Present Medications Home Medications: Ambulatory Orders Medication Instructions Recorded Confirmed Propranolol [Inderal] 20 mg PO BID PRN 02/16/18 02/02/21 Dextroamphetamine/Amphetamine 40 mg PO DAILY PM 12/21/20 02/02/21 [Adderall 20 mg Tablet] Meclizine HCl [Motion Sickness] 25 mg PO QID 12/21/20 02/02/21 lamoTRIgine [Lamictal] 150 mg PO DAILY 12/21/20 02/02/21 - Allergies Allergies/Adverse Reactions: Allergies Allergy/AdvReac Type Severity Reaction Status Date / Time codeine Allergy Mild Hives Verified 02/02/21 00:12 - Social History Does the pt smoke?: Yes Smoking Status: Current every day smoker Does the pt drink ETOH?: No Does the pt have substance abuse?: No - Immunizations Immunizations are current?: Yes - POLST Patient has POLST: No PD ED PE NORMAL - Vitals Vital signs reviewed: Yes - General General: Alert and oriented X 3, No acute distress, Other (Disheveled appearing. Tearful and apologetic) - HEENT HEENT: Atraumatic, PERRL, EOMI, Other (Atraumatic with the exception of left frontal forehead laceration) - Neck Neck: No bony TTP - Cardiac Cardiac: RRR - Respiratory Respiratory: No respiratory distress, Clear bilaterally - Abdomen Abdomen: Non tender, Non distended - Back Back: No spinal TTP - Derm Derm: Normal color, Warm and dry - Extremities Extremities: No deformity, Normal ROM s pain, Other (2+ DP pulses) - Neuro Neuro: Alert and oriented X 3, No motor deficit, No sensory deficit - Psych Psych: Normal mood, Normal affect, Other (tearful, AOX4) Results - Vitals Vitals: Vital Signs - 24 hr 02/02/21 02/02/21 02/02/21 00:12 00:17 01:30 Temperature 36.7 C 36.7 C Heart Rate 90 90 96 Respiratory 18 18 18 Rate Blood Pressure 150/105 H 150/105 H 140/61 H O2 Saturation 98 98 98 Oxygen O2 Source [With Activity] Room air O2 Source Room air Procedures - Laceration (location) Face left Length in cm: 3 Wound type: Curved Neurovascular status: Sensory intact, Motor intact Tendon involvement: Tendon intact Anesthesia: Lidocaine 1% with epi Wound preparation: Wound explored, To the base. No: FB identified Skin layer closure: Nylon, Interrupted, Sutures - enter # (4) Other: Patient tolerated well, No complications, Neurovascular intact, Dressing applied, Tetanus UTD PD MEDICAL DECISION MAKING - ED course ED course: Patient presented for traumatic injury after a fall while drinking alcohol. Will obtain Traumatic imaging and reevaluate. CTs and xrays negative. lac repaired. f/u for suture removal in 5 days. return precautions given. Departure - Departure Disposition: 01 Home, Self Care Clinical Impression: Alcohol abuse, Fall, Head injury, Laceration Condition: Good Instructions: ED Laceration All Comments: You were seen in the emergency department for evaluation of traumatic injury. Your CT and x-rays were normal. You should follow-up for removal of your stitches in 5 days. Monitor for any signs of infection return to the emergency department if you have any new or worsening symptoms or other concerns. Follow- up with your primary doctor.
[2021-02-02] MEDS ORDERED: BACITRACIN ZINC OINT 1 PACKET TOP STA (00:18)
[2021-02-02] MEDS ORDERED: oxyCODONE 5 MG TABLET PO STA (00:20)
[2021-02-02] MEDS ORDERED: LORazepam 0.5 MG TABLET PO STA (00:20)
[2021-02-02] MEDS ORDERED: ACETAMINOPHEN 325 MG TABLET PO STA (01:32)
[2021-02-02 02:27] VITALS: BP 115/62
--- NOTE | 2021-02-02 07:46 | CT Report ---
PROCEDURE: CERVICAL SPINE WO INDICATIONS: fall from standing +etoh TECHNIQUE: Noncontrast 3 mm thick sections acquired from the skull base to the T4 level. Sagittal and coronal r eformats were then constructed. For radiation dose reduction, the following was used: automated exp osure control, adjustment of mA and/or kV according to patient size. COMPARISON: None. FINDINGS: Image quality: Excellent. Bones: No fractures or dislocations. Visualized superior ribs are intact. Soft tissues: Prevertebral soft tissues are normal in thickness. No paravertebral hematomas. No ap ical pneumothoraces. IMPRESSION: Moderate cervical degenerative disc disease, no fracture or traumatic subluxation. Reviewed by: Jalen Morgan MD on 02/02/2021 7:45 AM PDT Approved by: Jalen Morgan MD on 02/02/2021 7:45 AM PDT Station ID: [id number]
--- NOTE | 2021-02-02 07:47 | XRAY Report ---
PROCEDURE: Chest 1 View X-Ray INDICATIONS: fall from standing, +etoh TECHNIQUE: One view of the chest was acquired. COMPARISON: 10/07/2016 chest 2 views FINDINGS: Surgical changes and devices: None. Lungs and pleura: No pleural effusions or pneumothorax. Lungs are clear. Mediastinum: Mediastinal contours appear normal. Heart size is normal. Bones and chest wall: No suspicious bony lesions. Overlying soft tissues appear unremarkable. IMPRESSION: No trauma found. Reviewed by: Jalen Morgan MD on 02/02/2021 7:46 AM PDT Approved by: Jalen Morgan MD on 02/02/2021 7:46 AM PDT Station ID: [id number]
--- NOTE | 2021-02-02 07:48 | XRAY Report ---
PROCEDURE: Pelvis 1 View INDICATIONS: fall from standing, etoh TECHNIQUE: And 11 (01/29/2015 view(s) of the pelvis acquired. COMPARISON: None. FINDINGS: Bones: No fractures or dislocations. No suspicious bony lesions. Soft tissues: Visualized bowel gas pattern is normal. No suspicious soft tissue calcifications. IMPRESSION: This is a normal study except for mild symmetric hip joint osteoarthritis.. Reviewed by: Jalen Morgan MD on 02/02/2021 7:47 AM PDT Approved by: Jalen Morgan MD on 02/02/2021 7:47 AM PDT Station ID: [id number]
--- NOTE | 2021-02-02 07:49 | CT Report ---
PROCEDURE: HEAD WO INDICATIONS: head injury with laceration, +etoh TECHNIQUE: Noncontrast 4.5 mm thick angled axial sections acquired from the foramen magnum to the vertex. For r adiation dose reduction, the following was used: automated exposure control, adjustment of mA and/or kV according to patient size. COMPARISON: None. FINDINGS: Image quality: Excellent. CSF spaces: Basal cisterns are patent. No extra-axial fluid collections. Ventricles are normal in size and shape. Brain: No midline shift. No intracranial masses or hemorrhage. Calabrese-white matter interface is norm al. Skull and face: Calvarium and visualized facial bones are intact, without suspicious lesions. Contu betty soft tissues left scalp area Sinuses: Visualized sinuses and mastoids are clear. IMPRESSION: Contusion to the soft tissues of the left scalp. Presumably the area of reported lacerat ion. No underlying fracture or intracranial hemorrhage. Reviewed by: Jalen Morgan MD on 02/02/2021 7:48 AM PDT Approved by: Jalen Morgan MD on 02/02/2021 7:48 AM PDT Station ID: [id number]
== END 2021-02-02 02:27 | disposition home or self-care (01) ==
LOC: EDUNIT# → ED 00:08
DX: S09.90XA Unspecified injury of head, initial encounter (principal); S01.81XA Laceration without foreign body of other part of head, initial encounter; W01.10XA Fall on same level from slipping, tripping and stumbling with subsequent striking against unspecified object, initial encounter; F10.10 Alcohol abuse, uncomplicated; M50.30 Other cervical disc degeneration, unspecified cervical region; F17.200 Nicotine dependence, unspecified, uncomplicated
CPT/HCPCS: 12013; 70450; 71045; 72125; 72170; 99284; A9270

== ENCOUNTER 2021-09-20 15:28 | Emergency (ER) | payer MEDICARE ==
[2021-09-20 16:51] LABS: BASOPHILS # (AUTO) 0.1 10^3/uL (0.0-0.1); BASOPHILS % (AUTO) 0.6 %; EOSINOPHILS # (AUTO) 0.2 10^3/uL (0.0-0.7); EOSINOPHILS % (AUTO) 2.1 %; HGB - HEMOGLOBIN 12.9 g/dL (12.0-16.0); LYMPHOCYTES # (AUTO) 2.4 10^3/uL (1.5-3.5); LYMPHOCYTES % (AUTO) 28.5 %; MEAN CORPUSCULAR HEMOGLOBIN 31.5 pg (27.0-31.0); MEAN CORPUSCULAR HGB CONC 33.1 g/dL (32.0-36.0); MEAN CORPUSCULAR VOLUME 95.1 fL (81.0-99.0); MEAN PLATELET VOLUME 8.3 fL (7.9-10.8); MONOCYTES # (AUTO) 0.6 10^3/uL (0.0-1.0); MONOCYTES % (AUTO) 7.5 %; NEUTROPHILS # (AUTO) 5.1 10^3/uL (1.5-6.6); NEUTROPHILS % (AUTO) 61.1 %; PLT - PLATELET COUNT 335 10^3/uL (130-450); RED CELL DISTRIBUTION WIDTH 12.4 % (12.0-15.0); WHITE BLOOD COUNT 8.4 x10^3/uL (4.8-10.8)
[2021-09-20 17:01] LABS: ALBUMIN 3.9 g/dL (3.2-5.5); ALBUMIN/GLOBULIN RATIO 1.4 (1.0-2.2); BILIRUBIN,TOTAL 0.3 mg/dL (0.2-1.0); CREATININE 0.6 mg/dL (0.4-1.0); POTASSIUM 3.7 mmol/L (3.5-5.0); TOTAL PROTEIN 6.7 g/dL (6.7-8.2)
[2021-09-20] MEDS ORDERED: IOVERSOL 320 100 ML VIAL IVP ONE ×2 (17:16→17:30)
[2021-09-20] MEDS ORDERED: SODIUM CHLORIDE 0.9% 1,000 ML IV STA ×2 (17:16→18:40)
--- NOTE | 2021-09-20 17:16 | ED Physician Documentation ---
PD HPI ABD PAIN - Stated complaint Stated Complaint: ABD PAIN/BLOATING - Chief complaint Chief Complaint: Abd Pain - History obtained from History obtained from: Patient - History of Present Illness Timing - onset: How many weeks ago (1) Timing - duration: Weeks (1) Timing - details: Gradual onset, Still present Quality: Cramping, Fullness/distended, Pain Location: All over / everywhere Improved by: Vomiting, BM Worsened by: Moving Associated symptoms: Nausea, Vomiting, Diarrhea Similar symptoms before: No diagnosis Recently seen: Not recently seen - Additional information Additional information: 56-year-old Margo Ignacio has been seen by her primary care doctor within the last 2 months and had her dose of lamotrigine increased from 200 to 300 mg. Somehow the patient picked up the wrong medication and has been taking 200 mg pills 2 at a time. She had been prescription prescribed 150 mg pills 2 at a time. Over the past week she has developed nausea vomiting and diarrhea and she is wondering if this is related to her medication. She is teary-eyed about her mistake. 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 : Frequency HEENT: Other Psych: Depression, Anxiety, Bipolar disorder Musculoskeletal: Osteoarthritis, Other Derm: None - Past Surgical History Past Surgical History: Yes General: Cholecystectomy Ortho: Knee replacement, Rotator cuff repair HEENT: Tonsil/Adenoidectomy, Other - Present Medications Home Medications: Ambulatory Orders Medication Instructions Recorded Confirmed Propranolol [Inderal] 20 mg PO BID PRN 02/16/18 02/02/21 Dextroamphetamine/Amphetamine 40 mg PO DAILY PM 12/21/20 02/02/21 [Adderall 20 mg Tablet] Meclizine HCl [Motion Sickness] 25 mg PO QID 12/21/20 02/02/21 lamoTRIgine [Lamictal] 150 mg PO DAILY 12/21/20 02/02/21 Albuterol Sulfate [Proair Hfa 09/20/21 09/20/21 Inhaler] Gabapentin [Neurontin] 100 mg ORAL BID 09/20/21 09/20/21 Omeprazole 40 mg ORAL DAILY 09/20/21 09/20/21 Venlafaxine ER [Effexor ER] 75 mg ORAL DAILY 09/20/21 09/20/21 - Allergies Allergies/Adverse Reactions: Allergies Allergy/AdvReac Type Severity Reaction Status Date / Time codeine Allergy Mild Hives Verified 09/20/21 15:42 - Social History Does the pt smoke?: Yes Smoking Status: Current every day smoker Does the pt drink ETOH?: No Does the pt have substance abuse?: No - Immunizations Immunizations are current?: Yes - POLST Patient has POLST: No PD ED PE NORMAL - Vitals Vital signs reviewed: Yes - General General: Alert and oriented X 3, Well developed/nourished, Other (The patient is in tears as she is explaining her medication error. She is blaming herself for this happening to her.) - HEENT HEENT: Atraumatic, PERRL - Neck Neck: Supple, no meningeal sign, No bony TTP - Cardiac Cardiac: No murmur, Other (Tacky to 120) - Respiratory Respiratory: No respiratory distress, Clear bilaterally - Abdomen Abdomen: Normal bowel sounds, Soft, Non distended, No organomegaly, Other (Minimal generalized tenderness no guarding or rebound.) - Back Back: No CVA TTP, No spinal TTP - Derm Derm: Normal color, Warm and dry, No rash - Extremities Extremities: No deformity, No edema - Neuro Neuro: Alert and oriented X 3, vp integrity 2-12 intact, No motor deficit, No sensory deficit, Normal speech Eye Opening: Spontaneous Motor: Obeys Commands Verbal: Oriented GCS Score: 15 - Psych Psych: Normal mood, Normal affect Results - Vitals Vitals: Vital Signs - 24 hr 09/20/21 09/20/21 15:36 18:04 Temperature 35.9 C L Heart Rate 123 H 100 Respiratory 16 16 Rate Blood Pressure 124/100 H 155/91 H O2 Saturation 100 100 Oxygen O2 Source [] Room air O2 Source Room air - Labs Labs: Laboratory Tests 09/20/21 09/20/21 09/20/21 16:45 16:45 16:45 WBC 8.4 RBC 4.10 L Hgb 12.9 Hct 39.0 MCV 95.1 MCH 31.5 H MCHC 33.1 RDW 12.4 Plt Count 335 MPV 8.3 Neut # (Auto) 5.1 Lymph # (Auto) 2.4 [place] # (Auto) 0.6 Eos # (Auto) 0.2 Baso # (Auto) 0.1 Absolute Nucleated RBC 0.00 Nucleated RBC % 0.0 Sodium 136 Potassium 3.7 Chloride 99 L Carbon Dioxide 26 Anion Gap 11.0 BUN 23 H Creatinine 0.6 Estimated GFR (MDRD) 104 Glucose 101 H Lactic Acid 1.5 Calcium 9.0 Total Bilirubin 0.3 AST 64 H ALT 84 H Alkaline Phosphatase 88 Total Protein 6.7 Albumin 3.9 Globulin 2.8 Albumin/Globulin Ratio 1.4 Lipase 38 Urine Color Urine Clarity Urine pH Ur Specific [place] Urine Protein Urine Glucose (UA) Urine Ketones Urine Occult Blood Urine Nitrite Urine Bilirubin Urine Urobilinogen Ur Leukocyte Esterase Urine RBC Urine WBC Ur Squamous Epith Cells Urine Bacteria Ur Microscopic Review Urine Culture Comments 09/20/21 18:35 WBC RBC Hgb Hct MCV MCH MCHC RDW Plt Count MPV Neut # (Auto) Lymph # (Auto) [place] # (Auto) Eos # (Auto) Baso # (Auto) Absolute Nucleated RBC Nucleated RBC % Sodium Potassium Chloride Carbon Dioxide Anion Gap BUN Creatinine Estimated GFR (MDRD) Glucose Lactic Acid Calcium Total Bilirubin AST ALT Alkaline Phosphatase Total Protein Albumin Globulin Albumin/Globulin Ratio Lipase Urine Color YELLOW Urine Clarity CLEAR Urine pH 6.0 Ur Specific [place] 1.015 Urine Protein NEGATIVE Urine Glucose (UA) NEGATIVE Urine Ketones NEGATIVE Urine Occult Blood MODERATE H Urine Nitrite NEGATIVE Urine Bilirubin NEGATIVE Urine Urobilinogen 0.2 (NORMAL) Ur Leukocyte Esterase NEGATIVE Urine RBC 0-5 Urine WBC 0-3 Ur Squamous Epith Cells RARE Squamous Urine Bacteria None Seen Ur Microscopic Review INDICATED Urine Culture Comments NOT INDICATED - Rads (name of study) CT ab/pel with Radiology: Prelim report reviewed (Impression: 1. No small bowel obstruction. No free fluid. Diverticulosis. No diverticulitis. Small fat-containing periumbilical hernia. Small nonobstructing left kidney stone. Hepatic steatosis.), EMP read indepedently, See rad report PD MEDICAL DECISION MAKING - ED course Complexity details: reviewed old records, reviewed results, re-evaluated patient, considered differential, d/w patient ED course: 56-year-old female with what sounds like a gastroenteritis over the past week appears significantly just dehydrated. An IV is begun and she is administered saline. After 1 L is and she is able to produce a urine specimen. A second liter is hung. She feels much improved. Departure - Departure Disposition: 01 Home, Self Care Clinical Impression: Dehydration, Gastroenteritis Condition: Stable Instructions: ED Dehydration, ED Gastroenteritis Non Infec Follow-Up: Kalyn Talbert ARNP [Primary Care Provider] - Comments: Margo, today it looks like you have your vomiting and diarrhea that you have had over the past week is caused her to become significantly dehydrated. We have provided some IV hydration and the expectation is you will feel much improved. Of course we are also recommending you reduce your medication to the dose your intended to be on. Follow-up with your primary care doctor.
--- NOTE | 2021-09-20 17:42 | CT Report ---
PROCEDURE: Abdomen/Pelvis W INDICATIONS: pain swelling and vomiting CONTRAST: IV CONTRAST: Optiray 320 ml: 100 PO CONTRAST: *NO PO CONTRAST TECHNIQUE: After the administration of intravenous contrast, 5 mm thick sections acquired from the diaphragms to the symphysis. 5 mm thick coronal and sagittal reformats were acquired. For radiation dose reducti on, the following was used: automated exposure control, adjustment of mA and/or kV according to chantal ent size. COMPARISON: CT abdomen and pelvis 01/29/2015.. FINDINGS: Image quality: Excellent. ABDOMEN: Lung bases: Left lung base pulmonary nodule measuring 0.5 cm, not significant changed since 2014. Hea rt size is normal. Solid organs: Liver and spleen are normal in size. Hepatic steatosis. Geographic area of focal fatty sparing at the gallbladder fossa. Gallbladder is absent. Biliary system is non dilated. Pancreas enhances normally. No adrenal nodules. Kidneys demonstrate normal size and enhancement, without hyd ronephrosis. Left kidney superior pole 2 mm nonobstructing calculus. Peritoneum and bowel: Bowel loops demonstrate normal wall thickness and caliber. Diverticulosis. No diverticulitis. Normal appendix. No free fluid or air. Nodes and vessels: No retroperitoneal or mesenteric adenopathy by size criteria. Aorta and inferior vena cava are normal in size. Miscellaneous: Small periumbilical fat-containing hernia. PELVIS: Genitourinary: Bladder wall thickness is normal. Miscellaneous: Possible fat-containing right inguinal hernia. No adenopathy. Bones: No suspicious bony lesions. No vertebral body compression fractures. IMPRESSION: 1. No small bowel obstruction. No free fluid. 2. Diverticulosis. No diverticulitis. 3. Small fat-containing periumbilical hernia. 4. Small nonobstructing left kidney stone. 5. Hepatic steatosis. Reviewed by: Edgar Huff MD on 09/20/2021 4:41 PM [facility] Approved by: Edgar Huff MD on 09/20/2021 4:41 PM [facility] Station ID: [id number]
[2021-09-20 19:32] LABS: BILIRUBIN,URINE NEGATIVE (NEGATIVE); GLUCOSE, URINE (UA) NEGATIVE (NEGATIVE); KETONES,URINE (UA) NEGATIVE (NEGATIVE); LEUKOCYTE ESTERASE, URINE NEGATIVE (NEGATIVE); NITRITE,URINE NEGATIVE (NEGATIVE); OCCULT BLOOD,URINE MODERATE (NEGATIVE); PROTEIN,URINE NEGATIVE (NEGATIVE); UROBILINOGEN,URINE 0.2 (NORMAL) E.U./dL (NORMAL)
[2021-09-20 19:43] LABS: BACTERIA,URINE None Seen /HPF (None Seen); CLARITY,URINE CLEAR (CLEAR); RBC,URINE 0-5 /HPF (0-5); SQUAMOUS EPITHELIAL CELL,UR RARE Squamous (<= Few); WBC,URINE 0-3 /HPF (0-5)
[2021-09-20 19:58] VITALS: BP 155/93
== END 2021-09-20 19:58 | disposition home or self-care (01) ==
LOC: ED 15:28
DX: E86.0 Dehydration (principal); K52.9 Noninfective gastroenteritis and colitis, unspecified; F17.200 Nicotine dependence, unspecified, uncomplicated
CPT/HCPCS: 36415; 74177; 80053; 81001; 83605; 83690; 85025; 96360; 99282; 99284; Q9967; 81003; 87086

== ENCOUNTER 2022-03-17 08:25 | Outpatient (CLI) | payer MEDICARE ==
--- NOTE | 2022-03-17 14:21 | XRAY Report ---
PROCEDURE: Hand 3 View RT INDICATIONS: PAIN IN RIGHT HAND TECHNIQUE: 3 views of the hand(s) acquired. COMPARISON: None FINDINGS: Bones: No fractures or dislocations. No suspicious bony lesions. Soft tissues: No suspicious soft tissue calcifications. IMPRESSION: No acute fracture. No osseous lesion. If symptoms and/or clinical suspicion for pathology continue, f urther assessment with repeat plain films, or advanced imaging (e.g., CT, MRI, or bone scan) is recom mended for further assessment. Reviewed by: Chris Mcghee MD on 03/17/2022 2:20 PM PDT Approved by: Chris Mcghee MD on 03/17/2022 2:20 PM PDT Station ID: [id number]
== END 2022-03-17 08:26 | disposition home or self-care (01) ==
LOC: DI 08:25
PROVIDERS: ATTEND Nurse Practitioner Family
DX: M79.641 Pain in right hand (principal)